=== PATIENT | male | born 1960 | race Caucasian/White ===

== ENCOUNTER 2019-07-26 08:33 | Inpatient (IN) | payer OTHER ==
[~2019-07-26] VITALS: Ht 182.9 cm; Wt 78.8 kg
[2019-07-26 09:10] LABS: BASOPHILS % (AUTO) 0.4 % (0.0-5.0); EOSINOPHILS % (AUTO) 2.9 % (0.0-8.0); MEAN CORPUSCULAR HEMOGLOBIN 29.2 pg (27.0-33.0); MEAN CORPUSCULAR HGB CONC 34.2 g/dL (32.0-36.0); MEAN CORPUSCULAR VOLUME 85.5 fL (79-99); MONOCYTES % (AUTO) 6.5 % (3.0-13.0); NEUTROPHILS % (AUTO) 67.9 % (40.0-77.0); PLATELET COUNT (AUTO) 195 K/uL (130-400); RED BLOOD CELL COUNT(AUTO) 4.21 MIL/uL (4.50-6.20); WHITE BLOOD COUNT (AUTO) 7.5 K/uL (4.8-10.8)
[2019-07-26 09:18] LABS: INR 0.91 (0.85-1.15); PARTIAL THROMBOPLASTIN TIME 25.3 SEC (26.3-35.5); PROTHROMBIN TIME 9.6 SEC (9.6-11.6)
[2019-07-26 09:19] LABS: CREATININE 0.8 mg/dL (0.5-1.5); POTASSIUM 4.1 mmol/L (3.5-5.1)
[2019-07-26 09:24] LABS: BILIRUBIN,TOTAL 1.1 mg/dL (0.2-1.0); TOTAL PROTEIN, SERUM 5.8 g/dL (6.0-8.3)
[2019-07-26] MEDS ORDERED: GADODIAMIDE 10 MMOL/20 ML VIAL IV ONE (09:53)
[2019-07-26] MEDS ORDERED: THIAMINE HCL 100 MG/ML 2ML VIAL ONE (09:58)
[2019-07-26] MEDS ORDERED: SODIUM CHLORIDE 0.9% 1000ML 1,000 ML IV ONE (10:00)
[2019-07-26 13:00] LABS: APPEARANCE,URINE Clear (CLEAR); BILIRUBIN,URINE Negative (NEGATIVE); COLOR,URINE Yellow (YELLOW); GLUCOSE, URINE (UA) 500 mg/dL (NEGATIVE); KETONES,URINE Negative (NEGATIVE); LEUKOCYTE ESTERASE ,URINE Negative (NEGATIVE); NITRATE,URINE Negative (NEGATIVE); OCCULT BLOOD,URINE Moderate (NEGATIVE); PH,URINE 6.5 (5.0-8.0); PROTEIN,URINE >=1000 mg/dL (NEGATIVE); UROBILINOGEN,URINE 0.2 mg/dL (0.2-1.0)
[2019-07-26 13:31] LABS: BACTERIA,URINE Few /HPF (None Seen); MUCUS,URINE Few LPF (None Seen); SQUAMOUS EPITHELIAL CELL,UR 0-2 /HPF (0-2); WBC,URINE 0-1 /HPF (0-1)
[2019-07-26 14:30] LABS: AMPHET/METH SCREEN,URINE NEGATIVE (NEGATIVE); BARBITURATE SCREEN, URINE NEGATIVE (NEGATIVE); BENZODIAZEPINES SCREEN,URINE NEGATIVE (NEGATIVE); CANNABINOID SCREEN,URINE NEGATIVE (NEGATIVE); COCAINE SCREEN,URINE NEGATIVE (NEGATIVE); OPIATE SCREEN,URINE NEGATIVE (NEGATIVE); PHENCYCLIDINE SCREEN,URINE NEGATIVE (NEGATIVE)
[2019-07-26 14:39] LABS: HEMOGLOBIN A1C 8.8 % (4.0-6.0)
[2019-07-26 14:53] LABS: ALANINE AMINOTRANSFERASE 8 U/L (12-78); ALBUMIN 1.8 g/dL (3.5-5.0); ALCOHOL, BLOOD < 3 mg/dL (0-10); ASPARTATE AMINOTRANSFERASE 21 U/L (10-37); BILIRUBIN,DIRECT 0.2 mg/dL (0.0-0.3); BILIRUBIN,TOTAL 1.1 mg/dL (0.2-1.0); CHOLESTEROL 264 mg/dL (<200); HDL CHOLESTEROL 38 mg/dL (29-71); LDL DIRECT 182 mg/dL (0-99); THYROID STIMULATING HORMONE 1.32 uIU/mL (0.36-3.74); TOTAL PROTEIN, SERUM 5.2 g/dL (6.0-8.3); TRIGLYCERIDES 152 mg/dL (30-200)
[2019-07-26 16:09] LABS: CSF TOTAL VOLUME 11.5 mL; GLUCOSE, CSF 147 mg/dL (40-70); TOTAL PROTEIN, CSF 92 mg/dL (15-45)
[2019-07-26 16:10] LABS: APPEARANCE,CSF CLEAR (CLEAR); COLOR,CSF COLORLESS (COLORLESS); CSF TUBE NUMBER 1; RED BLOOD CELL1,CSF 1 CMM (0-0); WHITE BLOOD CELL1,CSF 1 CMM (0-5)
[2019-07-26] MEDS ORDERED: INSULIN HUMULIN R 100 UNIT/ML 3ML SQ SCH (16:30)
[2019-07-26 16:40] VITALS: BP 176/84
[2019-07-26] MEDS: THIAMINE HCL 100 MG TABLET PO SCH ×2 (18:00→19:57)
[2019-07-26] MEDS ORDERED: FOLIC ACID 1 MG TABLET PO SCH (18:00)
[2019-07-26] MEDS ORDERED: FOLIC ACID 1 MG TABLET ONE (19:18)
[2019-07-26 19:25] VITALS: BP 148/99
[2019-07-26 19:40] VITALS: BP 170/90
[2019-07-26] MEDS: FAMOTIDINE 20MG TAB 20 MG TAB PO SCH (19:55)
[2019-07-26] MEDS ORDERED: HYDRALAZINE HCL 20 MG/ML VIAL ONE (20:01)
[2019-07-26] MEDS: HYDRALAZINE HCL 20 MG/ML VIAL IV PRN (20:05)
[2019-07-26] MEDS: INSULIN HUMULIN R 100 UNIT/ML 3ML SQ SCH (20:39)
[2019-07-26 20:40] VITALS: BP 154/81
[2019-07-26] MEDS ORDERED: FAMOTIDINE/PF 20 MG/2 ML VIAL IV SCH (21:00)
[2019-07-26] MEDS ORDERED: DIPHENHYDRAMINE HCL 25 MG CAPSULE ONE (23:57)
[2019-07-27] VITALS: BP 156/91
[2019-07-27] MEDS: DIPHENHYDRAMINE HCL 25 MG CAPSULE PO SCH ×2 (00:15→23:22)
[2019-07-27 04:00] VITALS: BP 161/85
[2019-07-27 05:14] LABS: BASOPHILS % (AUTO) 0.1 % (0.0-5.0); HEMATOCRIT 30.5 % (42-54); LYMPHOCYTES % (AUTO) 30.6 % (21.0-51.0); MEAN CORPUSCULAR HEMOGLOBIN 29.3 pg (27.0-33.0); MEAN CORPUSCULAR HGB CONC 33.8 g/dL (32.0-36.0); MEAN CORPUSCULAR VOLUME 86.6 fL (79-99); PLATELET COUNT (AUTO) 174 K/uL (130-400); RED BLOOD CELL COUNT(AUTO) 3.52 MIL/uL (4.50-6.20); RED CELL DISTRIBUTION WIDTH 14.1 % (11.0-15.5); WHITE BLOOD COUNT (AUTO) 6.8 K/uL (4.8-10.8)
[2019-07-27 05:43] LABS: ALBUMIN 1.6 g/dL (3.5-5.0); BILIRUBIN,TOTAL 0.9 mg/dL (0.2-1.0); CREATININE 0.9 mg/dL (0.5-1.5); POTASSIUM 3.2 mmol/L (3.5-5.1); TOTAL PROTEIN, SERUM 4.8 g/dL (6.0-8.3)
[2019-07-27] MEDS ORDERED: POTASSIUM CHLORIDE 20 MEQ ERTAB PO ONE (06:14)
[2019-07-27] MEDS ORDERED: POTASSIUM CHLORIDE 20MEQ/100ML 100 ML IV PRN (06:15)
[2019-07-27] MEDS ORDERED: LIDOCAINE HCL-MPF 1% 2ML VIAL IV PRN (06:15)
[2019-07-27] MEDS ORDERED: POTASSIUM CHLORIDE 10% ELIXIR 20 MEQ/15 ML UDCUP PO PRN (06:15)
[2019-07-27] MEDS: POTASSIUM CHLORIDE 20 MEQ ERTAB PO PRN ×4 (06:17→20:12)
[2019-07-27] MEDS: HYDRALAZINE HCL 20 MG/ML VIAL IV PRN ×2 (06:20→13:24)
[2019-07-27] MEDS: INSULIN HUMULIN R 100 UNIT/ML 3ML SQ SCH ×4 (06:35→21:59)
[2019-07-27 07:30] VITALS: BP 167/96
[2019-07-27] MEDS: FOLIC ACID 1 MG TABLET PO SCH (08:41)
[2019-07-27] MEDS: FAMOTIDINE 20MG TAB 20 MG TAB PO SCH ×2 (08:41→20:11)
[2019-07-27] MEDS: THIAMINE HCL 100 MG TABLET PO SCH ×2 (08:41→20:11)
[2019-07-27] MEDS: ENOXAPARIN SODIUM 30 MG/0.3 ML SQ SCH (08:42)
[2019-07-27] MEDS ORDERED: THIAMINE HCL 100 MG TABLET PO SCH (09:00)
[2019-07-27] MEDS ORDERED: ATORVASTATIN CALCIUM 20 MG TABLET PO SCH (09:00)
[2019-07-27] MEDS ORDERED: GADODIAMIDE 10 MMOL/20 ML VIAL IV ONE (09:13)
[2019-07-27 11:30] VITALS: BP 165/98
[2019-07-27 15:30] VITALS: BP 168/87
[2019-07-27] MEDS: ATORVASTATIN CALCIUM 20 MG TABLET PO SCH ×2 (16:15→20:11)
[2019-07-27] MEDS ORDERED: GLIPIZIDE XL 2.5MG TAB PO SCH (16:15)
[2019-07-27] MEDS ORDERED: CYANOCOBALAMIN (VITAMIN B-12) 1000 MCG/ML 1ML VIAL IM SCH (16:15)
[2019-07-27] MEDS: METFORMIN HCL 500 MG TABLET PO SCH (17:34)
[2019-07-27] MEDS: FUROSEMIDE 10 MG/ML 2ML VIAL IV SCH (17:35)
[2019-07-27] MEDS ORDERED: LISINOPRIL 5 MG TABLET ONE (19:30)
[2019-07-27] MEDS ORDERED: ONDANSETRON HCL 4 MG/2 ML VIAL ONE (19:58)
[2019-07-27 19:59] VITALS: BP 150/95
[2019-07-27] MEDS: LISINOPRIL 5 MG TABLET PO SCH (20:11)
[2019-07-27] MEDS: ONDANSETRON HCL 4 MG/2 ML VIAL IVP PRN (20:12)
[2019-07-28] VITALS: BP 137/78
[2019-07-28] MEDS: FUROSEMIDE 10 MG/ML 2ML VIAL IV SCH ×3 (00:39→16:51)
[2019-07-28 04:00] VITALS: BP 160/86
[2019-07-28 04:35] LABS: BASOPHILS % (AUTO) 0.2 % (0.0-5.0); EOSINOPHILS % (AUTO) 1.4 % (0.0-8.0); HEMATOCRIT 34.6 % (42-54); LYMPHOCYTES % (AUTO) 6.7 % (21.0-51.0); MEAN CORPUSCULAR HEMOGLOBIN 29.5 pg (27.0-33.0); MEAN CORPUSCULAR HGB CONC 34.4 g/dL (32.0-36.0); MEAN CORPUSCULAR VOLUME 85.9 fL (79-99); NEUTROPHILS % (AUTO) 85.2 % (40.0-77.0); PLATELET COUNT (AUTO) 206 K/uL (130-400); RED BLOOD CELL COUNT(AUTO) 4.03 MIL/uL (4.50-6.20); RED CELL DISTRIBUTION WIDTH 14.2 % (11.0-15.5); WHITE BLOOD COUNT (AUTO) 8.6 K/uL (4.8-10.8)
[2019-07-28 04:49] LABS: B-TYPE NATRIURETIC PEPTIDE 1270 pg/mL (0-100)
[2019-07-28 04:54] LABS: PLATELET MORPHOLOGY PLT CLUMPS PRESENT
[2019-07-28 05:01] LABS: BILIRUBIN,TOTAL 1.6 mg/dL (0.2-1.0); MAGNESIUM 1.9 mg/dL (1.80-2.40); PHOSPHORUS 4.2 mg/dL (2.5-4.9); POTASSIUM 4.2 mmol/L (3.5-5.1); THYROID STIMULATING HORMONE 1.31 uIU/mL (0.36-3.74); TOTAL PROTEIN, SERUM 5.9 g/dL (6.0-8.3)
[2019-07-28] MEDS: INSULIN HUMULIN R 100 UNIT/ML 3ML SQ SCH ×4 (06:13→21:00)
[2019-07-28 07:34] VITALS: BP 159/86
[2019-07-28] MEDS: METFORMIN HCL 500 MG TABLET PO SCH ×3 (08:01→16:51)
[2019-07-28] MEDS: THIAMINE HCL 100 MG TABLET PO SCH ×2 (09:14→20:59)
[2019-07-28] MEDS: FOLIC ACID 1 MG TABLET PO SCH (09:14)
[2019-07-28] MEDS: FAMOTIDINE 20MG TAB 20 MG TAB PO SCH ×2 (09:14→20:59)
[2019-07-28] MEDS: ENOXAPARIN SODIUM 30 MG/0.3 ML SQ SCH (09:15)
[2019-07-28] MEDS: LISINOPRIL 5 MG TABLET PO SCH ×2 (09:15→20:59)
[2019-07-28] MEDS: CYANOCOBALAMIN (VITAMIN B-12) 100 MCG TABLET PO SCH (09:16)
[2019-07-28] MEDS: ONDANSETRON HCL 4 MG/2 ML VIAL IVP PRN ×2 (09:19→17:05)
[2019-07-28] MEDS: GLIPIZIDE XL 2.5MG TAB PO SCH (09:30)
[2019-07-28 11:35] VITALS: BP 182/94
[2019-07-28] MEDS ORDERED: FUROSEMIDE 10 MG/ML 2ML VIAL IV SCH (14:45)
[2019-07-28 15:41] VITALS: BP 174/94
[2019-07-28 19:25] VITALS: BP 178/93
[2019-07-28] MEDS: METOPROLOL TARTRATE 25 MG TAB PO SCH (20:59)
[2019-07-28] MEDS: ATORVASTATIN CALCIUM 20 MG TABLET PO SCH (20:59)
[2019-07-29] MEDS: FUROSEMIDE 10 MG/ML 2ML VIAL IV SCH (00:03)
[2019-07-29] MEDS: DIPHENHYDRAMINE HCL 25 MG CAPSULE PO SCH (00:15)
[2019-07-29 01:04] VITALS: BP 143/75
[2019-07-29 04:38] LABS: BASOPHILS % (AUTO) 0.4 % (0.0-5.0); EOSINOPHILS % (AUTO) 3.1 % (0.0-8.0); HEMATOCRIT 29.6 % (42-54); LYMPHOCYTES % (AUTO) 17.6 % (21.0-51.0); MEAN CORPUSCULAR HEMOGLOBIN 29.7 pg (27.0-33.0); MEAN CORPUSCULAR HGB CONC 33.8 g/dL (32.0-36.0); MEAN CORPUSCULAR VOLUME 87.8 fL (79-99); MONOCYTES % (AUTO) 11.9 % (3.0-13.0); NEUTROPHILS % (AUTO) 66.8 % (40.0-77.0); PLATELET COUNT (AUTO) 164 K/uL (130-400); RED BLOOD CELL COUNT(AUTO) 3.37 MIL/uL (4.50-6.20); WHITE BLOOD COUNT (AUTO) 4.8 K/uL (4.8-10.8)
[2019-07-29 04:40] VITALS: BP 146/85
[2019-07-29 04:58] LABS: ALBUMIN 1.6 g/dL (3.5-5.0); BILIRUBIN,TOTAL 1.3 mg/dL (0.2-1.0); CREATININE 1.1 mg/dL (0.5-1.5); POTASSIUM 4.3 mmol/L (3.5-5.1); TOTAL PROTEIN, SERUM 5.8 g/dL (6.0-8.3)
[2019-07-29] MEDS: INSULIN HUMULIN R 100 UNIT/ML 3ML SQ SCH ×4 (06:47→20:25)
[2019-07-29 07:30] VITALS: BP 165/86
[2019-07-29] MEDS: GLIPIZIDE XL 2.5MG TAB PO SCH (08:00)
[2019-07-29] MEDS: METOPROLOL TARTRATE 25 MG TAB PO SCH ×2 (09:00→20:24)
[2019-07-29] MEDS: FOLIC ACID 1 MG TABLET PO SCH (09:00)
[2019-07-29] MEDS: CYANOCOBALAMIN (VITAMIN B-12) 100 MCG TABLET PO SCH (09:00)
[2019-07-29] MEDS: LISINOPRIL 10 MG TABLET PO SCH ×2 (09:00→20:25)
[2019-07-29] MEDS: FAMOTIDINE 20MG TAB 20 MG TAB PO SCH ×2 (09:00→20:25)
[2019-07-29] MEDS: THIAMINE HCL 100 MG TABLET PO SCH ×2 (09:00→21:00)
[2019-07-29] MEDS: HYDRALAZINE HCL 20 MG/ML VIAL IV PRN (09:13)
[2019-07-29] MEDS: ENOXAPARIN SODIUM 30 MG/0.3 ML SQ SCH (09:15)
[2019-07-29 11:00] VITALS: BP 175/88
[2019-07-29] MEDS: METFORMIN HCL 500 MG TABLET PO SCH (17:00)
[2019-07-29] MEDS: FUROSEMIDE 20 MG TABLET PO SCH (17:00)
[2019-07-29] MEDS: ONDANSETRON HCL 4 MG/2 ML VIAL IVP PRN (18:12)
[2019-07-29 19:10] VITALS: BP 204/103
[2019-07-29] MEDS: ATORVASTATIN CALCIUM 20 MG TABLET PO SCH (21:00)
[2019-07-29 23:01] VITALS: BP 159/89
[2019-07-30] MEDS: DIPHENHYDRAMINE HCL 25 MG CAPSULE PO SCH ×2 (00:15→23:20)
[2019-07-30 03:26] VITALS: BP 143/75
[2019-07-30 03:32] LABS: HEMATOCRIT 27.6 % (42-54); MEAN CORPUSCULAR HEMOGLOBIN 29.6 pg (27.0-33.0); MEAN CORPUSCULAR HGB CONC 34.4 g/dL (32.0-36.0); PLATELET COUNT (AUTO) 163 K/uL (130-400); RED BLOOD CELL COUNT(AUTO) 3.21 MIL/uL (4.50-6.20); RED CELL DISTRIBUTION WIDTH 13.9 % (11.0-15.5); WHITE BLOOD COUNT (AUTO) 4.6 K/uL (4.8-10.8)
[2019-07-30 03:46] LABS: B-TYPE NATRIURETIC PEPTIDE 737 pg/mL (0-100)
[2019-07-30 03:51] LABS: CREATININE 0.9 mg/dL (0.5-1.5); MAGNESIUM 1.8 mg/dL (1.80-2.40); PHOSPHORUS 4.3 mg/dL (2.5-4.9); POTASSIUM 3.7 mmol/L (3.5-5.1)
[2019-07-30] MEDS: INSULIN HUMULIN R 100 UNIT/ML 3ML SQ SCH ×4 (07:11→21:00)
[2019-07-30 07:40] VITALS: BP 141/77
[2019-07-30] MEDS: GLIPIZIDE XL 2.5MG TAB PO SCH (08:00)
[2019-07-30] MEDS: METFORMIN HCL 500 MG TABLET PO SCH ×2 (08:00→16:58)
[2019-07-30] MEDS: THIAMINE HCL 100 MG TABLET PO SCH ×2 (08:42→21:05)
[2019-07-30] MEDS: FAMOTIDINE 20MG TAB 20 MG TAB PO SCH ×2 (08:42→21:05)
[2019-07-30] MEDS: FOLIC ACID 1 MG TABLET PO SCH (08:42)
[2019-07-30] MEDS: CYANOCOBALAMIN (VITAMIN B-12) 100 MCG TABLET PO SCH (08:42)
[2019-07-30] MEDS: FUROSEMIDE 20 MG TABLET PO SCH ×2 (08:42→17:08)
[2019-07-30] MEDS: METOPROLOL TARTRATE 25 MG TAB PO SCH ×2 (08:42→21:05)
[2019-07-30] MEDS: LISINOPRIL 10 MG TABLET PO SCH ×2 (08:42→21:05)
[2019-07-30] MEDS: ENOXAPARIN SODIUM 30 MG/0.3 ML SQ SCH (08:43)
[2019-07-30 11:35] VITALS: BP 186/90
[2019-07-30 15:00] VITALS: BP 169/93
[2019-07-30] MEDS: HYDRALAZINE HCL 20 MG/ML VIAL IV PRN (15:33)
[2019-07-30] MEDS: METOCLOPRAMIDE 10 MG TABLET PO SCH (17:08)
[2019-07-30 17:25] VITALS: BP 176/85
[2019-07-30 18:54] VITALS: BP 178/78
[2019-07-30] MEDS: ATORVASTATIN CALCIUM 20 MG TABLET PO SCH (21:04)
[2019-07-31] VITALS (7 sets, daily range): BP systolic 146–197; BP diastolic 69–87
[2019-07-31] MEDS: INSULIN HUMULIN R 100 UNIT/ML 3ML SQ SCH ×4 (05:56→21:00)
[2019-07-31] MEDS: FAMOTIDINE 20MG TAB 20 MG TAB PO SCH ×2 (07:30→21:50)
[2019-07-31] MEDS: CYANOCOBALAMIN (VITAMIN B-12) 100 MCG TABLET PO SCH (07:31)
[2019-07-31] MEDS: FOLIC ACID 1 MG TABLET PO SCH (07:31)
[2019-07-31] MEDS: FUROSEMIDE 20 MG TABLET PO SCH ×2 (07:31→17:00)
[2019-07-31] MEDS: METOCLOPRAMIDE 10 MG TABLET PO SCH ×3 (07:31→17:00)
[2019-07-31] MEDS: THIAMINE HCL 100 MG TABLET PO SCH ×2 (07:31→21:51)
[2019-07-31] MEDS: METOPROLOL TARTRATE 25 MG TAB PO SCH ×2 (07:31→21:51)
[2019-07-31] MEDS: LISINOPRIL 10 MG TABLET PO SCH (07:31)
[2019-07-31] MEDS: ENOXAPARIN SODIUM 30 MG/0.3 ML SQ SCH (07:32)
[2019-07-31] MEDS: METFORMIN HCL 500 MG TABLET PO SCH ×2 (08:00→17:00)
[2019-07-31] MEDS: GLIPIZIDE XL 2.5MG TAB PO SCH (08:00)
[2019-07-31] MEDS: HYDRALAZINE HCL 20 MG/ML VIAL IV PRN (17:15)
[2019-07-31] MEDS: LISINOPRIL 20 MG TABLET PO SCH (21:50)
[2019-07-31] MEDS: ATORVASTATIN CALCIUM 20 MG TABLET PO SCH (21:51)
[2019-07-31] MEDS: DIPHENHYDRAMINE HCL 25 MG CAPSULE PO SCH (22:21)
[2019-08-01] MEDS: HYDRALAZINE HCL 20 MG/ML VIAL IV PRN (04:11)
[2019-08-01 04:26] VITALS: BP 173/81
[2019-08-01] MEDS: INSULIN HUMULIN R 100 UNIT/ML 3ML SQ SCH ×3 (06:33→15:50)
[2019-08-01 08:15] VITALS: BP 161/72
[2019-08-01] MEDS: CYANOCOBALAMIN (VITAMIN B-12) 100 MCG TABLET PO SCH (08:28)
[2019-08-01] MEDS: GLIPIZIDE XL 2.5MG TAB PO SCH (08:28)
[2019-08-01] MEDS: FAMOTIDINE 20MG TAB 20 MG TAB PO SCH (08:29)
[2019-08-01] MEDS: METFORMIN HCL 500 MG TABLET PO SCH ×2 (08:29→17:36)
[2019-08-01] MEDS: FUROSEMIDE 20 MG TABLET PO SCH ×2 (08:29→17:37)
[2019-08-01] MEDS: LISINOPRIL 20 MG TABLET PO SCH (08:30)
[2019-08-01] MEDS: THIAMINE HCL 100 MG TABLET PO SCH (08:30)
[2019-08-01] MEDS: METOPROLOL TARTRATE 25 MG TAB PO SCH (08:30)
[2019-08-01] MEDS: FOLIC ACID 1 MG TABLET PO SCH (08:30)
[2019-08-01] MEDS: METOCLOPRAMIDE 10 MG TABLET PO SCH ×3 (08:30→17:37)
[2019-08-01] MEDS: ENOXAPARIN SODIUM 30 MG/0.3 ML SQ SCH (08:30)
[2019-08-01 11:52] VITALS: BP 162/80
[2019-08-01] MEDS ORDERED: METO10TA41 PO (14:04)
[2019-08-01] MEDS ORDERED: THIA100T91 PO (14:04)
[2019-08-01] MEDS ORDERED: GLIP2.5T PO (14:04)
[2019-08-01] MEDS ORDERED: FURO20TA6 PO (14:04)
[2019-08-01] MEDS ORDERED: LISI-613 PO (14:04)
[2019-08-01] MEDS ORDERED: FOLI1 PO (14:04)
[2019-08-01] MEDS ORDERED: METO25 PO (14:04)
[2019-08-01] MEDS ORDERED: METF-444 PO (14:04)
[2019-08-01] MEDS ORDERED: ATOR20TA65 PO (14:04)
[2019-08-01 16:18] VITALS: BP 157/71
[2019-08-01] MEDS ORDERED: AMLO5TAB9 PO (17:18)
== END 2019-08-01 18:00 | disposition home or self-care (01) | DRG 291 ==
LOC: EDH 08:33 → EDHIP 08:34 → 2AH 17:26 → 2DH 07-31 15:15
PROVIDERS: ADMIT Family Medicine; ATTEND Family Medicine
PROC: 009U3ZX Drainage of Spinal Canal, Percutaneous Approach, Diagnostic (ICD-10-PCS; principal; 2019-07-26)
PROC: B01B1ZZ Fluoroscopy of Spinal Cord using Low Osmolar Contrast (ICD-10-PCS; 2019-07-26)
DX: I11.0 Hypertensive heart disease with heart failure (principal); E43 Unspecified severe protein-calorie malnutrition; I50.33 Acute on chronic diastolic (congestive) heart failure; E11.65 Type 2 diabetes mellitus with hyperglycemia; D64.9 Anemia, unspecified; E11.40 Type 2 diabetes mellitus with diabetic neuropathy, unspecified; E11.51 Type 2 diabetes mellitus with diabetic peripheral angiopathy without gangrene; E78.5 Hyperlipidemia, unspecified; E87.6 Hypokalemia; M47.816 Spondylosis without myelopathy or radiculopathy, lumbar region; M47.812 Spondylosis without myelopathy or radiculopathy, cervical region; E11.43 Type 2 diabetes mellitus with diabetic autonomic (poly)neuropathy; K31.84 Gastroparesis; R29.6 Repeated falls; Z83.3 Family history of diabetes mellitus; Z79.899 Other long term (current) drug therapy; Z79.84 Long term (current) use of oral hypoglycemic drugs; Z68.23 Body mass index [BMI] 23.0-23.9, adult
CPT/HCPCS: 36415; 62270; 70553; 71045; 71250; 72156; 72157; 72158; 80048; 80053; 80061; 80076; 80305; 81001; 82550; 82570; 82607; 82945; 82948; 83036; 83735; 83880; 84100; 84156; 84157; 84425; 84443; 85025; 85027; 85610; 85651; 85730; 86038; 86140; 86431; 86592; 86687; 86701; 87390; 87476; 89051; 93005; 93306; 97039; A9579; G0378; G0480; J0360; J1650; J1815; J1940; J2405; J3411; J3420; J7030; Q0163

== ENCOUNTER 2020-01-20 19:34 | Emergency (ER) | payer OTHER ==
[~2020-01-20 19:34] MED LIST: AMLO-257 PO; ATOR20TA65 PO; FOLI1 PO; FURO20TA6 PO; GLIP2.5T PO; LISI-613 PO; METF-444 PO; METO10TA41 PO; METO25 PO; THIA100T91 PO
[2020-01-20] MEDS ORDERED: SULFAMETHOX-TMP DS 800/160 TAB ONE (20:32)
== END 2020-01-20 20:43 | disposition home or self-care (01) ==
LOC: EDH 19:34
DX: L03.031 Cellulitis of right toe (principal); E11.9 Type 2 diabetes mellitus without complications; I10 Essential (primary) hypertension

== ENCOUNTER 2020-03-26 12:52 | Emergency (ER) | payer OTHER ==
[~2020-03-26 12:52] MED LIST changes: -AMLO-257 PO; +AMLO5TAB9 PO
[2020-03-26 13:16] LABS: BASOPHILS % (AUTO) 0.5 % (0.0-5.0); EOSINOPHILS % (AUTO) 5.4 % (0.0-8.0); HEMATOCRIT 31.4 % (42-54); LYMPHOCYTES % (AUTO) 17.8 % (21.0-51.0); MEAN CORPUSCULAR HEMOGLOBIN 29.8 pg (27.0-33.0); MEAN CORPUSCULAR HGB CONC 34.4 g/dL (32.0-36.0); MEAN CORPUSCULAR VOLUME 86.7 fL (79-99); MONOCYTES % (AUTO) 7.4 % (3.0-13.0); NEUTROPHILS % (AUTO) 68.7 % (40.0-77.0); PLATELET COUNT (AUTO) 216 K/uL (130-400); RED BLOOD CELL COUNT(AUTO) 3.62 MIL/uL (4.50-6.20); RED CELL DISTRIBUTION WIDTH 14.4 % (11.0-15.5); WHITE BLOOD COUNT (AUTO) 8.3 K/uL (4.8-10.8)
[2020-03-26 13:28] LABS: INR 0.9 (0.85-1.15); PROTHROMBIN TIME 9.8 SEC (9.6-11.6)
[2020-03-26] MEDS ORDERED: FUROSEMIDE 10 MG/ML 4ML VIAL ONE (13:34)
[2020-03-26 13:39] LABS: CREATININE 1.3 mg/dL (0.5-1.5); POTASSIUM 4.2 mmol/L (3.5-5.1)
[2020-03-26 13:41] LABS: B-TYPE NATRIURETIC PEPTIDE 1070 pg/mL (0-100)
[2020-03-26 13:46] LABS: BILIRUBIN,TOTAL 0.6 mg/dL (0.2-1.0); TOTAL PROTEIN, SERUM 5.9 g/dL (6.0-8.3)
== END 2020-03-26 14:58 | disposition home or self-care (01) ==
LOC: EDH 12:52
DX: R60.1 Generalized edema (principal); E11.9 Type 2 diabetes mellitus without complications; I11.0 Hypertensive heart disease with heart failure; I50.9 Heart failure, unspecified
CPT/HCPCS: 36415; 71045; 80053; 82550; 83880; 84484; 85025; 85610; 85730; 93005; 96374; 99285; J1940

== ENCOUNTER 2020-05-07 17:22 | Emergency (ER) | payer OTHER ==
[~2020-05-07 17:22] MED LIST changes: +AMLO-257 PO; -AMLO5TAB9 PO
[2020-05-07 18:05] LABS: BASOPHILS % (AUTO) 0.5 % (0.0-5.0); EOSINOPHILS % (AUTO) 6.2 % (0.0-8.0); HEMATOCRIT 30.5 % (42-54); LYMPHOCYTES % (AUTO) 16.5 % (21.0-51.0); MEAN CORPUSCULAR HEMOGLOBIN 29.3 pg (27.0-33.0); MEAN CORPUSCULAR HGB CONC 33.4 g/dL (32.0-36.0); MEAN CORPUSCULAR VOLUME 87.6 fL (79-99); MONOCYTES % (AUTO) 8.6 % (3.0-13.0); PLATELET COUNT (AUTO) 177 K/uL (130-400); RED BLOOD CELL COUNT(AUTO) 3.48 MIL/uL (4.50-6.20); RED CELL DISTRIBUTION WIDTH 13.7 % (11.0-15.5); WHITE BLOOD COUNT (AUTO) 8.3 K/uL (4.8-10.8)
[2020-05-07 18:23] LABS: INR 0.93 (0.85-1.15); PROTHROMBIN TIME 10.1 SEC (9.6-11.6)
[2020-05-07 18:27] LABS: B-TYPE NATRIURETIC PEPTIDE 433 pg/mL (0-100); CREATININE 1.5 mg/dL (0.5-1.5); POTASSIUM 4.1 mmol/L (3.5-5.1)
[2020-05-07 18:32] LABS: ALBUMIN 2.1 g/dL (3.5-5.0); BILIRUBIN,TOTAL 0.5 mg/dL (0.2-1.0)
[2020-05-07 18:35] LABS: PARTIAL THROMBOPLASTIN TIME 25.4 SEC (26.3-35.5)
== END 2020-05-07 20:55 | disposition home or self-care (01) ==
LOC: EDH 17:22
DX: J06.9 Acute upper respiratory infection, unspecified (principal); N28.9 Disorder of kidney and ureter, unspecified; I50.22 Chronic systolic (congestive) heart failure; Z20.828 Contact with and (suspected) exposure to other viral communicable diseases; E11.9 Type 2 diabetes mellitus without complications; I11.0 Hypertensive heart disease with heart failure
CPT/HCPCS: 36415; 71045; 80053; 82550; 83605; 83880; 84484; 85025; 85610; 85730; 87040 ×2; 87426; 87804 ×2; 93005; 99285; U0003

== ENCOUNTER 2020-06-19 05:49 | Day surgery (SDC) | payer OTHER ==
[~2020-06-19] VITALS: Ht 177.8 cm; Wt 78.5 kg
[2020-06-19] VITALS (9 sets, daily range): BP systolic 93–155; BP diastolic 47–87
[~2020-06-19 05:49] MED LIST changes: -GLIP2.5T PO; -METO10TA41 PO
[2020-06-19] MEDS ORDERED: SODIUM CHLORIDE 0.9% 1000ML 1,000 ML IV ONE (06:14)
[2020-06-19] MEDS ORDERED: POTASSIUM PO (06:25)
[2020-06-19] MEDS ORDERED: FERROUS SULFATE PO (06:25)
[2020-06-19] MEDS ORDERED: MULT-660 PO (06:25)
[2020-06-19] MEDS ORDERED: PROPOFOL 10 MG/ML 20ML VIAL IV ONE (07:26)
[2020-06-19] MEDS ORDERED: MIDAZOLAM HCL 1 MG/ML 2ML VIAL ONE (07:26)
[2020-06-19] MEDS ORDERED: LIDOCAINE HCL 1% 20 ML VIAL ONE (07:26)
[2020-06-19] MEDS ORDERED: PHENYLEPHRINE HCL 10 MG/ML 1ML VIAL IV ONE (07:27)
[2020-06-19] MEDS ORDERED: EPINEPHRINE 1 MG/ML AMPULE ONE (08:03)
== END 2020-06-19 08:53 | disposition home or self-care (01) ==
LOC: ENDO 05:49 → DAH 05:49 → ENDO 08:53
PROVIDERS: ATTEND Internal Medicine Gastroenterology
DX: D50.9 Iron deficiency anemia, unspecified (principal); K63.5 Polyp of colon; K29.70 Gastritis, unspecified, without bleeding; K57.30 Diverticulosis of large intestine without perforation or abscess without bleeding; I11.0 Hypertensive heart disease with heart failure; E11.9 Type 2 diabetes mellitus without complications; E78.5 Hyperlipidemia, unspecified; I50.20 Unspecified systolic (congestive) heart failure; Z79.82 Long term (current) use of aspirin; Z79.899 Other long term (current) drug therapy; Z20.828 Contact with and (suspected) exposure to other viral communicable diseases
CPT/HCPCS: 43239; 45380; 82948 ×2; 93005; A4215; A4221; A4222; A4223; A4606; A4620; A4657; A4663; C9803; J0171; J2250; J2370; J2704; J7030; U0003

== ENCOUNTER 2020-09-27 14:49 | Inpatient (IN) | payer OTHER ==
[~2020-09-27] VITALS: Ht 182.9 cm; Wt 81.4 kg
[2020-09-27] MEDS: HEPARIN 5,000 UNIT VIAL SQ SCH (03:00)
[2020-09-27] MEDS: INSULIN HUMULIN R 100 UNIT/ML 3ML SQ SCH (03:00)
[2020-09-27] MEDS: FAMOTIDINE 20MG TAB PO SCH (03:00)
[~2020-09-27 14:49] MED LIST changes: -AMLO-257 PO; +FERROUS SULFATE PO; -LISI-613 PO; +LISI20TA24 PO; +MULT-660 PO; +POTASSIUM PO
[2020-09-27 15:50] LABS: BASOPHILS % (AUTO) 0.4 % (0.0-5.0); EOSINOPHILS % (AUTO) 4.3 % (0.0-8.0); HEMATOCRIT 29.7 % (42-54); LYMPHOCYTES % (AUTO) 18.2 % (21.0-51.0); MEAN CORPUSCULAR HEMOGLOBIN 29.3 pg (27.0-33.0); MEAN CORPUSCULAR HGB CONC 32.7 g/dL (32.0-36.0); MEAN CORPUSCULAR VOLUME 89.7 fL (79-99); MONOCYTES % (AUTO) 7.1 % (3.0-13.0); NEUTROPHILS % (AUTO) 69.7 % (40.0-77.0); PLATELET COUNT (AUTO) 193 K/uL (130-400); RED BLOOD CELL COUNT(AUTO) 3.31 MIL/uL (4.50-6.20); RED CELL DISTRIBUTION WIDTH 14.3 % (11.0-15.5); WHITE BLOOD COUNT (AUTO) 7.2 K/uL (4.8-10.8)
[2020-09-27 16:07] LABS: CREATININE 2.2 mg/dL (0.5-1.5); POTASSIUM 4.5 mmol/L (3.5-5.1)
[2020-09-27 16:10] LABS: INR 0.99 (0.85-1.15); PROTHROMBIN TIME 10.8 SEC (9.6-11.6)
[2020-09-27 16:12] LABS: PARTIAL THROMBOPLASTIN TIME 25.6 SEC (26.3-35.5)
[2020-09-27 16:15] LABS: ALBUMIN 2.2 g/dL (3.5-5.0); B-TYPE NATRIURETIC PEPTIDE 1220 pg/mL (0-100); BILIRUBIN,TOTAL 0.7 mg/dL (0.2-1.0); TOTAL PROTEIN, SERUM 6.2 g/dL (6.0-8.3)
[2020-09-27] MEDS ORDERED: LACTULOSE 20 GM/30 ML UDCUP PO PRN (17:00)
[2020-09-27] MEDS ORDERED: ACETAMINOPHEN 325 MG TAB PO PRN ×2 (17:00)
[2020-09-27] MEDS ORDERED: ONDANSETRON 4MG INJ IV PRN (17:00)
[2020-09-27] MEDS ORDERED: FUROSEMIDE 40MG VIAL ONE (17:30)
[2020-09-27] MEDS ORDERED: FAMOTIDINE 20MG TAB ONE (20:44)
[2020-09-27] MEDS ORDERED: FUROSEMIDE 20MG VIAL ONE (20:45)
[2020-09-27] MEDS ORDERED: FUROSEMIDE 40MG VIAL IVP SCH (21:00)
[2020-09-28 03:10] VITALS: BP 165/81
[2020-09-28] MEDS: HEPARIN 5,000 UNIT VIAL SQ SCH ×2 (05:23→17:59)
[2020-09-28 06:46] LABS: BASOPHILS % (AUTO) 0.4 % (0.0-5.0); EOSINOPHILS % (AUTO) 5.4 % (0.0-8.0); HEMATOCRIT 26.8 % (42-54); LYMPHOCYTES % (AUTO) 14.5 % (21.0-51.0); MEAN CORPUSCULAR HEMOGLOBIN 29.8 pg (27.0-33.0); MEAN CORPUSCULAR VOLUME 87.9 fL (79-99); MONOCYTES % (AUTO) 7.6 % (3.0-13.0); NEUTROPHILS % (AUTO) 71.8 % (40.0-77.0); PLATELET COUNT (AUTO) 184 K/uL (130-400); RED BLOOD CELL COUNT(AUTO) 3.05 MIL/uL (4.50-6.20); WHITE BLOOD COUNT (AUTO) 6.7 K/uL (4.8-10.8)
[2020-09-28 06:52] LABS: CREATININE 2.1 mg/dL (0.5-1.5)
[2020-09-28] MEDS ORDERED: BUMETANIDE 2.5MG/10ML VIAL 40 ML IV SCH (07:15)
[2020-09-28 07:29] LABS: B-TYPE NATRIURETIC PEPTIDE 928 pg/mL (0-100)
[2020-09-28] MEDS: INSULIN HUMULIN R 100 UNIT/ML 3ML SQ SCH ×4 (07:30→21:00)
[2020-09-28] MEDS ORDERED: ENOXAPARIN SODIUM 30 MG/0.3 ML SQ SCH (09:00)
[2020-09-28 11:35] LABS: PROTEIN,URINE RANDOM 740.2 mg/dL (0-11.9)
[2020-09-28 13:15] VITALS: BP 195/96
[2020-09-28 16:11] VITALS: BP 163/81
[2020-09-28 19:00] VITALS: BP 161/81
[2020-09-28] MEDS: FAMOTIDINE 20MG TAB PO SCH (21:49)
[2020-09-28] MEDS ORDERED: BUMETANIDE 2.5MG/10ML VIAL 80 ML IV SCH (22:15)
[2020-09-29] VITALS: BP 149/75
[2020-09-29 04:00] VITALS: BP 133/75
[2020-09-29 05:19] LABS: BASOPHILS % (AUTO) 0.3 % (0.0-5.0); EOSINOPHILS % (AUTO) 4.4 % (0.0-8.0); HEMATOCRIT 27.7 % (42-54); LYMPHOCYTES % (AUTO) 15.4 % (21.0-51.0); MEAN CORPUSCULAR HEMOGLOBIN 29.4 pg (27.0-33.0); MEAN CORPUSCULAR HGB CONC 33.2 g/dL (32.0-36.0); MEAN CORPUSCULAR VOLUME 88.5 fL (79-99); MONOCYTES % (AUTO) 7.4 % (3.0-13.0); NEUTROPHILS % (AUTO) 72.1 % (40.0-77.0); PLATELET COUNT (AUTO) 198 K/uL (130-400); RED BLOOD CELL COUNT(AUTO) 3.13 MIL/uL (4.50-6.20); RED CELL DISTRIBUTION WIDTH 13.9 % (11.0-15.5); WHITE BLOOD COUNT (AUTO) 7.6 K/uL (4.8-10.8)
[2020-09-29 05:25] LABS: HEMOGLOBIN A1C 6.3 % (4.0-6.0)
[2020-09-29 05:27] LABS: % IRON SATURATION 28.2 % (30-44)
[2020-09-29 05:45] LABS: CREATININE 2.3 mg/dL (0.5-1.5); POTASSIUM 4.3 mmol/L (3.5-5.1); THYROID STIMULATING HORMONE 1.03 uIU/mL (0.36-3.74)
[2020-09-29 05:53] LABS: B-TYPE NATRIURETIC PEPTIDE 1320 pg/mL (0-100)
[2020-09-29] MEDS: HEPARIN 5,000 UNIT VIAL SQ SCH ×2 (06:11→16:34)
[2020-09-29] MEDS: INSULIN HUMULIN R 100 UNIT/ML 3ML SQ SCH ×4 (07:30→21:00)
[2020-09-29 08:33] VITALS: BP 169/70
[2020-09-29 12:00] VITALS: BP 134/70
[2020-09-29 15:22] LABS: APPEARANCE,URINE Clear (CLEAR); BILIRUBIN,URINE Negative (NEGATIVE); COLOR,URINE Yellow (YELLOW); GLUCOSE, URINE (UA) 250 mg/dL (NEGATIVE); KETONES,URINE Negative (NEGATIVE); LEUKOCYTE ESTERASE ,URINE Negative (NEGATIVE); NITRATE,URINE Negative (NEGATIVE); OCCULT BLOOD,URINE Moderate (NEGATIVE); PROTEIN,URINE 300 mg/dL (NEGATIVE); UROBILINOGEN,URINE 0.2 mg/dL (0.2-1.0)
[2020-09-29 15:52] LABS: BACTERIA,URINE Few /HPF (None Seen); SQUAMOUS EPITHELIAL CELL,UR Rare /HPF (0-2); WBC,URINE 0-1 /HPF (0-1)
[2020-09-29 17:23] LABS: CREATININE 2.4 mg/dL (0.5-1.5)
[2020-09-29 17:45] VITALS: BP 170/79
[2020-09-29 19:00] VITALS: BP 157/76
[2020-09-29] MEDS: FAMOTIDINE 20MG TAB PO SCH (22:04)
[2020-09-29] MEDS: FUROSEMIDE 40MG VIAL IV SCH (22:04)
[2020-09-29] MEDS ORDERED: LOSARTAN 50 MG TABLET ONE (23:59)
[2020-09-30] VITALS: BP 183/84
[2020-09-30] MEDS ORDERED: AMLO-258 PO (00:32)
[2020-09-30 04:00] VITALS: BP 150/74
[2020-09-30] MEDS: HEPARIN 5,000 UNIT VIAL SQ SCH ×2 (04:49→17:58)
[2020-09-30 05:54] LABS: BASOPHILS % (AUTO) 0.5 % (0.0-5.0); EOSINOPHILS % (AUTO) 6.5 % (0.0-8.0); HEMATOCRIT 26.7 % (42-54); LYMPHOCYTES % (AUTO) 21.6 % (21.0-51.0); MEAN CORPUSCULAR HEMOGLOBIN 29.6 pg (27.0-33.0); MEAN CORPUSCULAR HGB CONC 33.3 g/dL (32.0-36.0); MEAN CORPUSCULAR VOLUME 88.7 fL (79-99); MONOCYTES % (AUTO) 9.2 % (3.0-13.0); NEUTROPHILS % (AUTO) 61.9 % (40.0-77.0); PLATELET COUNT (AUTO) 178 K/uL (130-400); RED BLOOD CELL COUNT(AUTO) 3.01 MIL/uL (4.50-6.20); RED CELL DISTRIBUTION WIDTH 13.8 % (11.0-15.5); WHITE BLOOD COUNT (AUTO) 6.2 K/uL (4.8-10.8)
[2020-09-30 06:12] LABS: CREATININE 2.3 mg/dL (0.5-1.5); POTASSIUM 3.8 mmol/L (3.5-5.1)
[2020-09-30] MEDS: INSULIN HUMULIN R 100 UNIT/ML 3ML SQ SCH ×4 (07:30→21:00)
[2020-09-30 08:00] VITALS: BP 175/82
[2020-09-30] MEDS ORDERED: FUROSEMIDE 20 MG TABLET PO SCH (09:00)
[2020-09-30] MEDS ORDERED: LOSARTAN 50 MG TABLET PO SCH (09:00)
[2020-09-30] MEDS: LISINOPRIL 20 MG TABLET PO SCH ×2 (10:18→21:36)
[2020-09-30] MEDS: METOPROLOL TARTRATE 25 MG TAB PO SCH ×2 (10:18→21:36)
[2020-09-30] MEDS: FOLIC ACID 1 MG TABLET PO SCH (10:18)
[2020-09-30] MEDS: MULTIVITAMIN WITH MINERALS TABLET PO SCH (10:18)
[2020-09-30] MEDS: AMLODIPINE 5 MG TAB PO SCH (10:18)
[2020-09-30] MEDS: THIAMINE HCL 100 MG TABLET PO SCH ×2 (10:18→21:36)
[2020-09-30] MEDS: FERROUS SULFATE 325 MG TABLET.DR PO SCH (10:22)
[2020-09-30] MEDS: FUROSEMIDE 40MG VIAL IV SCH ×2 (10:23→21:40)
[2020-09-30 12:00] VITALS: BP 162/59
[2020-09-30 16:00] VITALS: BP 163/75
[2020-09-30] MEDS: ATORVASTATIN 20 MG TABLET PO SCH (21:36)
[2020-09-30] MEDS: FAMOTIDINE 20MG TAB PO SCH (21:36)
[2020-09-30] MEDS: LOSARTAN 50 MG TABLET PO SCH ×2 (21:36)
[2020-09-30 22:16] VITALS: BP 158/79
[2020-10-01] VITALS (7 sets, daily range): BP systolic 150–164; BP diastolic 69–88
[2020-10-01] MEDS: HEPARIN 5,000 UNIT VIAL SQ SCH ×2 (04:39→17:03)
[2020-10-01 05:12] LABS: BASOPHILS % (AUTO) 0.3 % (0.0-5.0); EOSINOPHILS % (AUTO) 6.6 % (0.0-8.0); HEMATOCRIT 25.5 % (42-54); LYMPHOCYTES % (AUTO) 25.3 % (21.0-51.0); MEAN CORPUSCULAR HEMOGLOBIN 28.9 pg (27.0-33.0); MEAN CORPUSCULAR HGB CONC 33.3 g/dL (32.0-36.0); MEAN CORPUSCULAR VOLUME 86.7 fL (79-99); NEUTROPHILS % (AUTO) 58.6 % (40.0-77.0); PLATELET COUNT (AUTO) 177 K/uL (130-400); RED BLOOD CELL COUNT(AUTO) 2.94 MIL/uL (4.50-6.20); RED CELL DISTRIBUTION WIDTH 13.8 % (11.0-15.5); WHITE BLOOD COUNT (AUTO) 6.5 K/uL (4.8-10.8)
[2020-10-01 05:26] LABS: CREATININE 2.3 mg/dL (0.5-1.5); POTASSIUM 3.4 mmol/L (3.5-5.1)
[2020-10-01 05:51] LABS: B-TYPE NATRIURETIC PEPTIDE 1230 pg/mL (0-100)
[2020-10-01] MEDS: INSULIN HUMULIN R 100 UNIT/ML 3ML SQ SCH ×4 (07:07→23:03)
[2020-10-01] MEDS: AMLODIPINE 5 MG TAB PO SCH (09:35)
[2020-10-01] MEDS: FERROUS SULFATE 325 MG TABLET.DR PO SCH (09:35)
[2020-10-01] MEDS: METOPROLOL TARTRATE 25 MG TAB PO SCH ×2 (09:35→23:00)
[2020-10-01] MEDS: THIAMINE HCL 100 MG TABLET PO SCH ×2 (09:35→23:00)
[2020-10-01] MEDS: MULTIVITAMIN WITH MINERALS TABLET PO SCH (09:35)
[2020-10-01] MEDS: LISINOPRIL 20 MG TABLET PO SCH ×2 (09:35→23:00)
[2020-10-01] MEDS: FOLIC ACID 1 MG TABLET PO SCH (09:35)
[2020-10-01] MEDS: FUROSEMIDE 40MG VIAL IV SCH (09:36)
[2020-10-01] MEDS ORDERED: BUMETANIDE 2.5MG/10ML VIAL 40 ML IV SCH (11:45)
[2020-10-01] MEDS ORDERED: COMPOUND IV MISC 1 EACH IVSOLN MISC PRN (12:45)
[2020-10-01 21:01] LABS: APPEARANCE,URINE Clear (CLEAR); BILIRUBIN,URINE Negative (NEGATIVE); COLOR,URINE Yellow (YELLOW); GLUCOSE, URINE (UA) 250 mg/dL (NEGATIVE); KETONES,URINE Negative (NEGATIVE); LEUKOCYTE ESTERASE ,URINE Negative (NEGATIVE); NITRATE,URINE Negative (NEGATIVE); OCCULT BLOOD,URINE Small (NEGATIVE); PROTEIN,URINE >=1000 mg/dL (NEGATIVE); UROBILINOGEN,URINE 0.2 mg/dL (0.2-1.0)
[2020-10-01 21:10] LABS: BACTERIA,URINE Rare /HPF (None Seen); WBC,URINE 0-1 /HPF (0-1)
[2020-10-01 21:11] LABS: SQUAMOUS EPITHELIAL CELL,UR Rare /HPF (0-2)
[2020-10-01] MEDS: ATORVASTATIN 20 MG TABLET PO SCH (23:00)
[2020-10-01] MEDS: FAMOTIDINE 20MG TAB PO SCH (23:00)
[2020-10-02] VITALS: BP 155/75
[2020-10-02] MEDS ORDERED: POTASSIUM CHLORIDE 10% ELIXIR 20 MEQ/15 ML UDCUP PO PRN (01:15)
[2020-10-02] MEDS ORDERED: KCL 20 MEQ ERTAB PO PRN (01:15)
[2020-10-02] MEDS ORDERED: POTASSIUM CHLORIDE 20MEQ/100ML 100 ML IV PRN ×2 (01:15)
[2020-10-02 03:57] LABS: BASOPHILS % (AUTO) 0.4 % (0.0-5.0); EOSINOPHILS % (AUTO) 6.4 % (0.0-8.0); HEMATOCRIT 25.4 % (42-54); LYMPHOCYTES % (AUTO) 16.6 % (21.0-51.0); MEAN CORPUSCULAR HEMOGLOBIN 29.3 pg (27.0-33.0); MEAN CORPUSCULAR HGB CONC 34.3 g/dL (32.0-36.0); MEAN CORPUSCULAR VOLUME 85.5 fL (79-99); MONOCYTES % (AUTO) 8.5 % (3.0-13.0); NEUTROPHILS % (AUTO) 67.8 % (40.0-77.0); PLATELET COUNT (AUTO) 162 K/uL (130-400); RED BLOOD CELL COUNT(AUTO) 2.97 MIL/uL (4.50-6.20); RED CELL DISTRIBUTION WIDTH 13.7 % (11.0-15.5); WHITE BLOOD COUNT (AUTO) 6.9 K/uL (4.8-10.8)
[2020-10-02 04:00] VITALS: BP 155/71
[2020-10-02 04:17] LABS: ALBUMIN 1.8 g/dL (3.5-5.0); BILIRUBIN,DIRECT 0.1 mg/dL (0.0-0.3); BILIRUBIN,TOTAL 0.4 mg/dL (0.2-1.0); CREATININE 2.6 mg/dL (0.5-1.5); MAGNESIUM 1.8 mg/dL (1.80-2.40); PHOSPHORUS 4.9 mg/dL (2.5-4.9); POTASSIUM 3.2 mmol/L (3.5-5.1); TOTAL PROTEIN, SERUM 5.2 g/dL (6.0-8.3)
[2020-10-02 04:37] LABS: B-TYPE NATRIURETIC PEPTIDE 1010 pg/mL (0-100)
[2020-10-02] MEDS: HEPARIN 5,000 UNIT VIAL SQ SCH ×2 (05:52→17:17)
[2020-10-02] MEDS: INSULIN HUMULIN R 100 UNIT/ML 3ML SQ SCH ×4 (07:30→21:00)
[2020-10-02 07:56] VITALS: BP 184/86
[2020-10-02] MEDS: LISINOPRIL 20 MG TABLET PO SCH ×2 (09:00→20:24)
[2020-10-02] MEDS: METOPROLOL TARTRATE 25 MG TAB PO SCH ×2 (09:00→20:24)
[2020-10-02] MEDS: MULTIVITAMIN WITH MINERALS TABLET PO SCH (09:00)
[2020-10-02] MEDS: FERROUS SULFATE 325 MG TABLET.DR PO SCH (09:00)
[2020-10-02] MEDS: AMLODIPINE 5 MG TAB PO SCH (09:00)
[2020-10-02] MEDS: THIAMINE HCL 100 MG TABLET PO SCH ×2 (09:00→20:24)
[2020-10-02] MEDS: FOLIC ACID 1 MG TABLET PO SCH (09:00)
[2020-10-02 16:00] VITALS: BP 139/79
[2020-10-02 19:00] VITALS: BP 156/79
[2020-10-02] MEDS: ATORVASTATIN 20 MG TABLET PO SCH (20:24)
[2020-10-02] MEDS: FAMOTIDINE 20MG TAB PO SCH (20:24)
[2020-10-03] VITALS: BP 154/73
[2020-10-03 04:00] VITALS: BP 150/68
[2020-10-03 04:18] LABS: BASOPHILS % (AUTO) 0.4 % (0.0-5.0); HEMATOCRIT 25.4 % (42-54); LYMPHOCYTES % (AUTO) 21.8 % (21.0-51.0); MEAN CORPUSCULAR HEMOGLOBIN 29.7 pg (27.0-33.0); MEAN CORPUSCULAR HGB CONC 33.9 g/dL (32.0-36.0); MEAN CORPUSCULAR VOLUME 87.6 fL (79-99); MONOCYTES % (AUTO) 8.5 % (3.0-13.0); PLATELET COUNT (AUTO) 158 K/uL (130-400); RED CELL DISTRIBUTION WIDTH 13.7 % (11.0-15.5); WHITE BLOOD COUNT (AUTO) 6.8 K/uL (4.8-10.8)
[2020-10-03 04:34] LABS: ALBUMIN 1.5 g/dL (3.5-5.0); CREATININE 2.6 mg/dL (0.5-1.5); PHOSPHORUS 4.6 mg/dL (2.5-4.9); POTASSIUM 4.3 mmol/L (3.5-5.1)
[2020-10-03 05:06] LABS: B-TYPE NATRIURETIC PEPTIDE 801 pg/mL (0-100)
[2020-10-03] MEDS: HEPARIN 5,000 UNIT VIAL SQ SCH (05:56)
[2020-10-03] MEDS: INSULIN HUMULIN R 100 UNIT/ML 3ML SQ SCH ×3 (06:39→16:30)
[2020-10-03 08:00] VITALS: BP 162/72
[2020-10-03] MEDS ORDERED: BUMETANIDE 1 MG TAB PO SCH (09:00)
[2020-10-03 11:00] VITALS: BP 157/74
[2020-10-03] MEDS: LISINOPRIL 20 MG TABLET PO SCH (11:02)
[2020-10-03] MEDS: AMLODIPINE 5 MG TAB PO SCH (11:04)
[2020-10-03] MEDS: FERROUS SULFATE 325 MG TABLET.DR PO SCH (11:05)
[2020-10-03] MEDS: FOLIC ACID 1 MG TABLET PO SCH (11:05)
[2020-10-03] MEDS: THIAMINE HCL 100 MG TABLET PO SCH (11:05)
[2020-10-03] MEDS: METOPROLOL TARTRATE 25 MG TAB PO SCH (11:05)
[2020-10-03] MEDS: MULTIVITAMIN WITH MINERALS TABLET PO SCH (11:05)
[2020-10-03 16:00] VITALS: BP 161/72
[2020-10-03] MEDS ORDERED: BUME2TAB5 PO (17:03)
== END 2020-10-03 19:45 | disposition home or self-care (01) | DRG 291 ==
LOC: EDH 14:49 → EDHIP 16:59 → OBSVTOIN 16:59 → 4AH 09-28 02:46
PROVIDERS: ADMIT Internal Medicine; ATTEND Internal Medicine
DX: I13.0 Hypertensive heart and chronic kidney disease with heart failure and stage 1 through stage 4 chronic kidney disease, or unspecified chronic kidney disease (principal); I50.43 Acute on chronic combined systolic (congestive) and diastolic (congestive) heart failure; N17.9 Acute kidney failure, unspecified; E11.22 Type 2 diabetes mellitus with diabetic chronic kidney disease; R91.8 Other nonspecific abnormal finding of lung field; N18.32 Chronic kidney disease, stage 3b; E78.5 Hyperlipidemia, unspecified; Z20.822 Contact with and (suspected) exposure to COVID-19; T50.2X5A Adverse effect of carbonic-anhydrase inhibitors, benzothiadiazides and other diuretics, initial encounter; Z87.441 Personal history of nephrotic syndrome; Y92.89 Other specified places as the place of occurrence of the external cause; Z83.3 Family history of diabetes mellitus; Z82.49 Family history of ischemic heart disease and other diseases of the circulatory system; Z80.9 Family history of malignant neoplasm, unspecified
CPT/HCPCS: 36415; 71045; 76770; 80048; 80053; 80069; 80076; 81001; 82570; 82948; 83036; 83540; 83550; 83735; 83880; 84100; 84156; 84443; 84484; 84550; 85025; 85045; 85610; 85730; 86038; 86160; 86162; 86215; 86235; 87426; 93005; 93306; 93356; 97039; G0378; J1644; J1815; J1940; J3490; U0003